=== PATIENT | male | born 1955 | race Two or more races ===

== ENCOUNTER → 2024-12-09 | Outpatient (CLI) | payer MEDICARE, MEDICAID, SELFPAY ==
[2024-12-09 10:53] LABS: Glucose Estimated Average 280 mg/dL (80-131); Hemoglobin A1C 11.4 % Hgb (4.8-6.0)
[2024-12-09 11:08] LABS: Alanine Aminotransferase 50 U/L (10-49); Albumin, Serum 4.4 gm/dL (3.4-4.8); Albumin/Globulin Ratio 1.8 (1.2-2.2); Alkaline Phosphatase 54 U/L (46-116); Anion Gap 5 (7-16); Aspartate Amino Transferase 29 U/L (0-34); BUN/Creatinine Ratio 18 Ratio (12-20); Bilirubin,Total 1.2 mg/dL (0.3-1.2); Blood Urea Nitrogen 18 mg/dL (9-23); Calcium 9.1 mg/dL (8.3-10.6); Calcium (Corrected) 9.1 mg/dL (8.5-10.1); Carbon Dioxide 29.2 mMol/L (20.0-31.0); Chloride 105 mMol/L (98-107); Globulin 2.5 gm/dL (2.3-3.5); Glucose 255 mg/dL (74-106); Osmolality,Calculated 288 (275-295); Sodium 139 mMol/L (136-145); Total Protein 6.9 gm/dL (5.7-8.2); eGFR > 60 See Note
== END | disposition home or self-care (01) ==
PROVIDERS: PCP Student in an Organized Health Care Education/Training Program; Referring Provider Internal Medicine; Visit Provider Internal Medicine
DX: Z00.00 Encounter for general adult medical examination without abnormal findings (principal); E11.69 Type 2 diabetes mellitus with other specified complication
CPT/HCPCS: 36415; 80053; 83036

== ENCOUNTER 2024-12-10 08:47 | Outpatient (AMB) | payer MEDICARE, MEDICAID, SELFPAY ==
[2024-12-10 08:53] VITALS: BP 160/77; PULSE 59; RESP 16; TEMP 36.6; O2SAT 97; BMI 28.0
--- NOTE | 2024-12-10 08:53 | ACNOTE_ITS ---
Vital Signs 12/10/24 08:53 Height 1.6 m Height Method Stated Weight 71.668 kg Weight Measurement Method Standing Scale BMI 28.0 BP 160/77 H Blood Pressure Source Automatic Cuff Blood Pressure Location Left Upper Arm Position Sitting Respiration 16 Pulse 59 L Pulse Source Monitor Temp 97.8 F Temp Source Oral Pulse Oximetry (%) 97 Oxygen Delivery Method Room Air Allergies/Meds Allergies & Medications Allergies No Known Allergies Allergy (Verified 12/10/24 08:54) Medication Reconciliation pen needle, diabetic 29 gauge x 1/2 (Comfort EZ Pen [place]) #100 ea 01/28/24 [Rx Confirmed 12/10/24] insulin glargine 100 unit/mL (3 mL) subcutaneous pen (Lantus Solostar U-100 Insulin) 30 unit (0.3 mL) subcut HS #15 mL 12/10/24 [Rx] lisinopril 2.5 mg tablet 10 mg (4 x 2.5 mg) PO QDAY Hypertension #120 tabs 12/10/24 [Rx] metformin 500 mg tablet,extended release 24 hr 1,000 mg (2 x 500 mg) PO BID #60 tabs 12/10/24 [Rx] MA Intake Visit Data Collection New Patient or Established: Established Patient (seen at [facility] within 3 years) Seen by Clinical Staff ONLY (RN/MA): No Pain Present Currently: No Pain scale:: 0 Pain Scale Used: Briones-Dutta/Numerical Service Now Developer Required: No PCP or OBGYN visit in last 3 months: Yes Hx Now: No Do You Feel Safe at Home: Yes Authorities Contacted: N/A Smoking Status Smoking Status: Never smoker Immunization / Flu Flu Vaccine in the Last 12 Months: No Flu Vaccine Exclusion Criteria: No Exclusion Criteria Past Medical History Past Medical History CARDIAC: Positive Hypertension; Negative Congestive Heart Failure RESPIRATORY: Negative Chronic Obstructive Pulmonary Disease (COPD) GENITOURINARY: Negative Renal Disease ENDOCRINE: Positive Diabetes Mellitus Type 2; Negative Diabetes Mellitus Type 1 OTHER HISTORY: Positive Hospitalization; Negative Falls, Blood Transfusions or Anesthesia Reactions Social History SMOKING STATUS: Smoking status: Never smoker ALCOHOL: Alcohol Intake: Current ALCOHOL FREQUENCY: Alcohol Intake Frequency: holidays/special occasions only HOUSING: Housing: House LIVES WITH: Lives With: Children Patient Portal Questionaires Social History Living Situation History Housing: House Housing Other:: pt lives with dtr Tobacco History Smoking Status: Never smoker Alcohol History Alcohol Intake: Current Alcohol Intake Frequency: holidays/special occasions only Domestic Abuse History Do You Feel Safe at Home: Yes Review of Systems Report any current symptoms Only answer those that you have currently: Past Medical History Past Medical History Have you ever been diagnosed with any of the following: Cardiology Problems Congestive Heart Failure: No Hypertension: Yes Respiratory Problems Chronic Obstructive Pulmonary Disease (COPD): No Genital/Urinary Problems Renal Disease: No Endocrine Problems Diabetes Mellitus Type 1: No Diabetes Mellitus Type 2: Yes Other Problems Hospitalization: Yes Falls: No Blood Transfusions: No Anesthesia Reactions: No History of Present Illness HPI Narrative Patient here for follow up visit BP 144/67 states hes not taking his BP meds as he is feeling tired. Will change medication to lisinopril 2.5mg q day and ordered follow up A1C and BMP and will see in 4 months per patients request. Additionally patient has a mole near his right side of face near eye and states it has grown recently and bleeding referred to dermatology. 12/10/2024: Patient here for follow up, BP today was 160/77, re-taken found to be 135/776, reviewed labs A1C 11.4, patient states not being complaint with medications confirmed with at the bedside. Uptitrated lisinopril to 10mg qday, metformin 1000mg BID and lantus was adjusted to 20units HS and was instructed to uptitrate 1 units every morning till fasting blood glucose reaches 150. Patient counseled on importance of medication compliance. BMP ordered for follow up visit in 3 weeks. Review of Systems Review of Systems Narrative Review of Systems: Narrative ROS GENERAL: Denies fevers/chills or diaphoresis. HEENT: Denies headache or visual/hearing changes. Denies nasal discharge. NEURO: Denies unusual weakness or difficulty speaking. CARDIO: Denies chest pain or palpitations PULM: Denies SOB, coughing, or wheezing. GI: Denies abdominal pain, N/V/C/D/reflux/gas, bright red blood per rectum or melena. Reports having BMs. URO: Denies burning/itching/pain/urinary changes. MSK/EXT/SKIN: Denies joint/skeletal/muscle pain, issues/changes in upper or lower extremities, itchiness, or superficial pain. PSYCH: Cooperative, pleasant mood & affect. The rest of the review of systems is otherwise negative. Objective/Exam Narrative Physical exam: Physical Exam GENERAL: NAD, AAOx3 HEENT: Moist mucosa. Eyes open, symmetrical, & clear CARDIO: Heart RRR, no obvious murmurs PULM: No noted coughing/dyspnea CTA B/L, no R/W/R GI: Abdomen soft, nondistended, no pain on palpation. BSx4 SKIN/MSK/EXT: No wounds/rashes/edema/amputations, no pain on palpation. Pedal pulses present B/L NEURO: AAOx3, no focal neuro deficits, able to move all 4 extremities Assessment & Plan Diagnosis / Problem List (1) HTN (hypertension): Status: Acute Qualifiers: Hypertension type: primary hypertension Qualified Code(s): I10 - Essential (primary) hypertension Plan: BP today 160/77, retaken SBP 135, uptitrated lisinopril from 2.5mg q day to 10mg qday BMP also ordered to monitor renal function and potassium in 3 weeks of next follow up (2) Type 2 diabetes mellitus: Status: Acute Qualifiers: Diabetes mellitus complication status: with other specified complication Diabetes mellitus fci insulin use: with exterminator helper termite use Qualified Code(s ): E11.69 - Type 2 diabetes mellitus with other specified complication; Z79.4 - buttermaker (current) use of insulin Plan: A1c reviewed was 11.4, patient is non-complaint, lantus adjusted to 20 units at night and instructed to uptitrate every morning by 1 unit until fasting blood glucose reaches goal of 150 Metformin also adjusted to 1000mg BID Orders: Orders Basic Metabolic Panel Today E78.2 - Mixed hyperlipidemia Additional Assessment Internal Medicine Attending Note: Case discussed with and agree with note and management plan of Resident Physician as per Resident's Note above. Issues of concern for present visit are as follows: Follow-up visit. Blood pressure remains elevated though recheck was 135/76. Tolerating lisinopril, no cough. Labs reviewed, creatinine 1.0, potassium 5.0. Would titrate lisinopril dose up to 10 mg daily. Diabetic self-care reviewed including diet, exercise, footcare, eye care, home glucose testing. Patient reports blood sugars typically running higher in the morning, around 200. Using insulin glargine 20 units nightly. Would titrate upwards by 1 unit nightly until fasting glucoses in the a.m. are around 150. We will double his metformin dose as well and see if able to tolerate. Recheck BMP in 2 to 3 weeks. Follow-up in 4 weeks. Vinny Guy MD Advanced Care Planning Advance care planning discussed with:: patient and spouse Physician Billing Established Patient Established Patient: E/M Level 3-CPT 65464 Office Procedures [facility] Level of Care Nursing/Assessment Patient Status: Established Patient Nursing Assessment/Reassessment: Medication Reconciliation, Update PMH in EMR and Vital Signs Coordination of Care: Complex Care and Chronic Disease 1-5, Consent,records obtained, informed consent, Education Simp Pt/Fam and Staff clarify orders Established Patient Charge Established Patient Point Assignment: 85 Established Patient Point Charge: EP Level 3 (80-115)
== END 2024-12-10 09:57 | disposition home or self-care (01) ==
LOC: HODAHC 08:47
PROVIDERS: PCP Student in an Organized Health Care Education/Training Program; Referring Provider Student in an Organized Health Care Education/Training Program; Supervising Provider Student in an Organized Health Care Education/Training Program; Visit Provider Student in an Organized Health Care Education/Training Program
DX: I10 Essential (primary) hypertension (principal); E11.9 Type 2 diabetes mellitus without complications; Z79.4 Long term (current) use of insulin
CPT/HCPCS: 99213; G0463

== ENCOUNTER → 2024-12-29 | Outpatient (CLI) | payer MEDICARE, MEDICAID, SELFPAY ==
[2024-12-29 11:00] LABS: Anion Gap 9 (7-16); BUN/Creatinine Ratio 16 Ratio (12-20); Blood Urea Nitrogen 18 mg/dL (9-23); Calcium 9.6 mg/dL (8.3-10.6); Carbon Dioxide 27.6 mMol/L (20.0-31.0); Chloride 102 mMol/L (98-107); Creatinine (Component) 1.1 mg/dL (0.6-1.3); Glucose 133 mg/dL (74-106); Osmolality,Calculated 281 (275-295); Potassium 4.4 mMol/L (3.4-5.1); Sodium 139 mMol/L (136-145); eGFR > 60 See Note
== END | disposition home or self-care (01) ==
PROVIDERS: PCP Student in an Organized Health Care Education/Training Program; Referring Provider Student in an Organized Health Care Education/Training Program; Visit Provider Student in an Organized Health Care Education/Training Program
DX: E78.2 Mixed hyperlipidemia (principal)
CPT/HCPCS: 36415; 80048

== ENCOUNTER 2024-12-31 09:13 | Outpatient (AMB) | payer MEDICARE, MEDICAID, SELFPAY ==
[2024-12-31 09:23] VITALS: BP 133/72; PULSE 61; RESP 16; TEMP 36.6; O2SAT 97; BMI 26.2
--- NOTE | 2024-12-31 09:23 | ACNOTE_ITS ---
Vital Signs 12/31/24 09:23 Height 1.65 m Height Method Stated Weight 71.441 kg Weight Measurement Method Standing Scale BMI 26.2 BP 133/72 H Blood Pressure Source Automatic Cuff Blood Pressure Location Left Upper Arm Position Sitting Respiration 16 Pulse 61 Pulse Source Monitor Temp 97.8 F Temp Source Temporal Artery Scan Pulse Oximetry (%) 97 Oxygen Delivery Method Room Air Allergies/Meds Allergies & Medications Allergies No Known Allergies Allergy (Verified 12/31/24 09:24) Medication Reconciliation pen needle, diabetic 29 gauge x 1/2 (Comfort EZ Pen [place]) #100 ea 01/28/24 [Rx Confirmed 12/31/24] atorvastatin 40 mg tablet 40 mg PO QHS #30 tabs 12/31/24 [Rx] insulin glargine 100 unit/mL (3 mL) subcutaneous pen (Lantus Solostar U-100 Insulin) 30 unit (0.3 mL) subcut HS #15 mL 12/31/24 [Rx] lisinopril 10 mg tablet 10 mg PO QDAY #30 tabs 12/31/24 [Rx] metformin 500 mg tablet,extended release 24 hr 1,000 mg (2 x 500 mg) PO BID #60 tabs 12/31/24 [Rx] MA Intake Visit Data Collection New Patient or Established: Established Patient (seen at [facility] within 3 years) Seen by Clinical Staff ONLY (RN/MA): No Pain Present Currently: No Pain scale:: 0 Pain Scale Used: Briones-Dutta/Numerical Emblem Cutter Required: Yes PCP or OBGYN visit in last 3 months: Yes Hx Now: No Do You Feel Safe at Home: Yes Authorities Contacted: N/A Smoking Status Smoking Status: Never smoker Immunization / Flu Flu Vaccine in the Last 12 Months: No Flu Vaccine Exclusion Criteria: No Exclusion Criteria Past Medical History Past Medical History CARDIAC: Positive Hypertension; Negative Congestive Heart Failure RESPIRATORY: Negative Chronic Obstructive Pulmonary Disease (COPD) GENITOURINARY: Negative Renal Disease ENDOCRINE: Positive Diabetes Mellitus Type 2; Negative Diabetes Mellitus Type 1 OTHER HISTORY: Positive Hospitalization; Negative Falls, Blood Transfusions or Anesthesia Reactions Social History SMOKING STATUS: Smoking status: Never smoker ALCOHOL: Alcohol Intake: Current ALCOHOL FREQUENCY: Alcohol Intake Frequency: holidays/special occasions only HOUSING: Housing: House LIVES WITH: Lives With: Children Patient Portal Questionaires Social History Living Situation History Housing: House Housing Other:: pt lives with dtr Tobacco History Smoking Status: Never smoker Alcohol History Alcohol Intake: Current Alcohol Intake Frequency: holidays/special occasions only Domestic Abuse History Do You Feel Safe at Home: Yes Review of Systems Report any current symptoms Only answer those that you have currently: Past Medical History Past Medical History Have you ever been diagnosed with any of the following: Cardiology Problems Congestive Heart Failure: No Hypertension: Yes Respiratory Problems Chronic Obstructive Pulmonary Disease (COPD): No Genital/Urinary Problems Renal Disease: No Endocrine Problems Diabetes Mellitus Type 1: No Diabetes Mellitus Type 2: Yes Other Problems Hospitalization: Yes Falls: No Blood Transfusions: No Anesthesia Reactions: No History of Present Illness HPI Narrative Patient here for follow up visit BP 144/67 states hes not taking his BP meds as he is feeling tired. Will change medication to lisinopril 2.5mg q day and ordered follow up A1C and BMP and will see in 4 months per patients request. Additionally patient has a mole near his right side of face near eye and states it has grown recently and bleeding referred to dermatology. 12/10/2024: Patient here for follow up, BP today was 160/77, re-taken found to be 135/776, reviewed labs A1C 11.4, patient states not being complaint with medications confirmed with at the bedside. Uptitrated lisinopril to 10mg qday, metformin 1000mg BID and lantus was adjusted to 20units HS and was instructed to uptitrate 1 units every morning till fasting blood glucose reaches 150. Patient counseled on importance of medication compliance. BMP ordered for follow up visit in 3 weeks. 12/31/2024: Patient here today for follow-up. States no active complaints at this time. States his sugars at home have ranged between 130s and 150s, currently taking 22 units of Lantus. BP today found 133/72. Reviewed basic metabolic panel found within normal limits. Added atorvastatin 40 mg as part of diabetes management and sent refills for all his medications and will follow-up within 3 months. Review of Systems Review of Systems Systems Reviewed: All systems reviewed, normal except as documented Objective/Exam Narrative Physical exam: Physical Exam GENERAL: NAD, AAOx3 HEENT: Moist mucosa. Eyes open, symmetrical, & clear CARDIO: Heart RRR, no obvious murmurs PULM: No noted coughing/dyspnea CTA B/L, no R/W/R GI: Abdomen soft, nondistended, no pain on palpation. BSx4 SKIN/MSK/EXT: No wounds/rashes/edema/amputations, no pain on palpation. Pedal pulses present B/L NEURO: AAOx3, no focal neuro deficits, able to move all 4 extremities Assessment & Plan Diagnosis / Problem List (1) HTN (hypertension): Status: Acute Qualifiers: Hypertension type: primary hypertension Qualified Code(s): I10 - Essential (primary) hypertension Plan: Blood pressure today 133/72, well-controlled compared to previous evaluations. Will continue current management with lisinopril 10 mg daily. (2) HLD (hyperlipidemia): Status: Acute Qualifiers: Hyperlipidemia type: mixed hyperlipidemia Qualified Code(s): E78.2 - Mixed hyperlipidemia Plan: Started on atorvastatin 40 mg nightly (3) Type 2 diabetes mellitus: Status: Acute Qualifiers: Diabetes mellitus complication status: with other specified complication Diabetes mellitus watermelon harvesting supervisor insulin use: with watermelon harvesting supervisor use Qualified Code(s): E11.69 - Type 2 diabetes mellitus with other specified complication; Z79.4 - senior living (current) use of insulin Plan Patient currently on 22 units of Lantus as well as metformin 1000 mg twice daily, blood sugars at home have ranged between 130s and 150s we will keep current regimen at this time. Instructed the patient to log fasting blood sugars and postprandial to evaluate if we need to adjust insulin regimen. Will follow-up in 3 months Advanced Care Planning Advance care planning discussed with:: patient and child Office Procedures [facility] Level of Care Nursing/Assessment Patient Status: Established Patient Nursing Assessment/Reassessment: Medication Reconciliation, Update PMH in EMR and Vital Signs Coordination of Care: Complex Care and Chronic Disease 1-5, Consent,records obtained, informed consent, Education Simp Pt/Fam, Results/Orders obtained and Staff clarify orders Established Patient Charge Established Patient Point Assignment: 90 Established Patient Point Charge: EP Level 3 (80-115)
== END 2024-12-31 10:29 | disposition home or self-care (01) ==
LOC: HODAHC 09:13
PROVIDERS: PCP Student in an Organized Health Care Education/Training Program; Referring Provider Student in an Organized Health Care Education/Training Program; Supervising Provider Student in an Organized Health Care Education/Training Program; Visit Provider Student in an Organized Health Care Education/Training Program
DX: E11.9 Type 2 diabetes mellitus without complications (principal); I10 Essential (primary) hypertension; Z79.4 Long term (current) use of insulin; E78.2 Mixed hyperlipidemia
CPT/HCPCS: 99213; G0463

== ENCOUNTER 2025-04-27 08:51 | Outpatient (AMB) | payer MEDICARE, MEDICAID, SELFPAY ==
[2025-04-27 09:01] VITALS: BP 133/75; PULSE 61; RESP 18; TEMP 36.8; O2SAT 96; BMI 26.2
--- NOTE | 2025-04-27 09:01 | PD.RESCLINIC ---
Vital Signs 04/27/25 09:01 Height 1.65 m Height Method Stated Weight 71.271 kg Weight Measurement Method Standing Scale BMI 26.2 BP 133/75 H Blood Pressure Source Automatic Cuff Blood Pressure Location Right Upper Arm Position Sitting Respiration 18 Pulse 61 Pulse Source Monitor Temp 98.2 F Temp Source Temporal Artery Scan Pulse Oximetry (%) 96 Oxygen Delivery Method Room Air Allergies/Meds Allergies & Medications Allergies No Known Allergies Allergy (Verified 04/29/25 15:50) Medication Reconciliation pen needle, diabetic 29 gauge x 1/2 (Comfort EZ Pen [place]) #100 ea 01/28/24 [Rx Confirmed 04/29/25] atorvastatin 40 mg tablet 40 mg PO QHS #30 tabs 12/31/24 [Rx Confirmed 04/29/25] insulin glargine 100 unit/mL (3 mL) subcutaneous pen (Lantus Solostar U-100 Insulin) 30 unit (0.3 mL) subcut HS #15 mL 12/31/24 [Rx Confirmed 04/29/25] lisinopril 10 mg tablet 10 mg PO QDAY #30 tabs 12/31/24 [Rx Confirmed 04/29/25] metformin 500 mg tablet,extended release 24 hr 1,000 mg (2 x 500 mg) PO BID #60 tabs 12/31/24 [Rx Confirmed 04/29/25] MA Intake Visit Data Collection New Patient or Established: Established Patient (seen at [facility] within 3 years) Seen by Clinical Staff ONLY (RN/MA): No Pain Present Currently: No Pain scale:: 0 Pain Scale Used: Briones-Dutta/Numerical Certified Medical Assistant Required: No PCP or OBGYN visit in last 3 months: Yes Hx Now: No Do You Feel Safe at Home: Yes Authorities Contacted: N/A Smoking Status Smoking Status: Never smoker Immunization / Flu Flu Vaccine in the Last 12 Months: No Flu Vaccine Exclusion Criteria: Refused by Patient Past Medical History Past Medical History CARDIAC: Positive Hypertension; Negative Congestive Heart Failure RESPIRATORY: Negative Chronic Obstructive Pulmonary Disease (COPD) GENITOURINARY: Negative Renal Disease ENDOCRINE: Positive Diabetes Mellitus Type 2; Negative Diabetes Mellitus Type 1 OTHER HISTORY: Positive Hospitalization; Negative Falls, Blood Transfusions or Anesthesia Reactions Social History SMOKING STATUS: Smoking status: Never smoker ALCOHOL: Alcohol Intake: Current ALCOHOL FREQUENCY: Alcohol Intake Frequency: holidays/special occasions only HOUSING: Housing: House LIVES WITH: Lives With: Children Patient Portal Questionaires Social History Living Situation History Housing: House Housing Other:: pt lives with dtr Tobacco History Smoking Status: Never smoker Alcohol History Alcohol Intake: Current Alcohol Intake Frequency: holidays/special occasions only Domestic Abuse History Do You Feel Safe at Home: Yes Review of Systems Report any current symptoms Only answer those that you have currently: Past Medical History Past Medical History Have you ever been diagnosed with any of the following: Cardiology Problems Congestive Heart Failure: No Hypertension: Yes Respiratory Problems Chronic Obstructive Pulmonary Disease (COPD): No Genital/Urinary Problems Renal Disease: No Endocrine Problems Diabetes Mellitus Type 1: No Diabetes Mellitus Type 2: Yes Other Problems Hospitalization: Yes Falls: No Blood Transfusions: No Anesthesia Reactions: No History of Present Illness HPI Narrative Patient is a 69 year old male with past medical history of hypertension, hyperlipidemia, and diabetes mellitus type 2 insulin dependent. 12/10/2024: Patient here for follow up, BP today was 160/77, re-taken found to be 135/776, reviewed labs A1C 11.4, patient states not being complaint with medications confirmed with at the bedside. Uptitrated lisinopril to 10mg qday, metformin 1000mg BID and lantus was adjusted to 20units HS and was instructed to uptitrate 1 units every morning till fasting blood glucose reaches 150. Patient counseled on importance of medication compliance. [facility] [place] ordered for follow up visit in 3 weeks. 12/31/2024: Patient here today for follow-up. States no active complaints at this time. States his sugars at home have ranged between 130s and 150s, currently taking 22 units of Lantus. BP today found 133/72. Reviewed basic metabolic panel found within normal limits. Added atorvastatin 40 mg as part of diabetes management and sent refills for all his medications and will follow-up within 3 months. 04/27/2025: Patient is in the office for follow up. Patient stated no A1c despite being order in previous office visit. Patient stated fasting glucose from 110-150 with only two episodes of elevated fasting glucose of 200. Patient denied hyperglycemic sysmptoms or hypoglycemic. Denied any chest pain, chest palpititons, or dizziness. Patient denied headaches or blurry vision. Patient does not take blood pressure at home, recommending patient purchase a blood pressure cuff if they can. Patient continues to take Lisinopril 10 mg without problems, no syncopal episode reported. Patient continues to take Atorvastatin but one day off one day one. Counselded patient to conitnue to take medication. Ordered A1c, Renal panel, and fasting lipid panel. Follow up within 3 months. Review of Systems Review of Systems Narrative Review of Systems: General appearance: NO weight change, NO fatigue, NO weakness, NO fever, NO chills, NO night sweats, No cough Skin: NO rash, NO itching, NO sores, NO moles HEENT: NO Trauma, NO nausea, NO vomiting, NO visual changes, NO blurry vision, NO double vision, NO tinnitus, NO vertigo, NO ear discharge, NO rhinorrhea, NO stuffiness, NO sneezing, NO allergy, NO epistaxis. NO Hoarseness, NO sore throat, NO swollen neck. Cardiac: NO Palpitations, NO dyspnea on exertion, NO orthopnea, NO paroxysmal nocturnal dyspnea, NO edema Respiratory: NO Shortness of Breath, NO Wheezing, NO Cough, NO Sputum, NO hemoptysis GI:NO appetite, NO nausea, NO vomiting, NO dysphagia, NO changes in bowel frequency, NO stool color, NO diarrhea, NO constipation, NO hemetemesis, NO hemorrhoids, NO melena, NO hematechezia, NO abdominal pain, NO jaundice Renal: NO frequency, NO hesitancy, NO urgency, NO hematuria, NO nocturia, NO incontinence MSK: NO muscle weakness, NO gout, NO arthritis, NO muscle stiffness Neuro: NO headaches, NO tremors, NO weakness, NO paralysis, NO seizures, NO loss of consciousness, NO numbness. Hem: NO anemia, NO easy bruising/bleeding, NO petechiae, NO purpura Endo: NO heat/cold intolerance, NO excessive sweating, NO polyuria, NO polydipsia, NO polyphagia, NO thyroid problems, Yes diabetes Pysch: NO mood, NO anxiety, NO depression Objective/Exam Narrative Physical exam: Vitals: BP 133/75, HR 61, RR 18 General Appearance: Alert and Orientated x3, well-nourished male who is sitting on exam room in distress. Thorax/Lungs: Symmetrical with good expansion. Chest and back non-tender. Lungs resonant to percussion. Breath sounds vesicular without crackles, wheezes, or rhonchi Cardiovascular/Peripheral Vascular: No jugular venous distention noted. S1 and S2 heart sounds regular, no murmurs or extra heart sounds auscultated. No peripheral edema noted. Abdomen: Bowel sounds are active. No tenderness to deep or light palpation. Diabetic Foot Exam: No lesions. Bunion noted on left greater toe. No crackles. No diabetic ulcers. Assessment & Plan Diagnosis / Problem List (1) Type 2 diabetes mellitus: Status: Acute Qualifiers: Diabetes mellitus complication status: with other specified complication Diabetes mellitus skilled nursing insulin use: with regional intermodal truck driver use Qualified Code(s): E11.69 - Type 2 diabetes mellitus with other specified complication; Z79.4 - buttermaker continuous churn (current) use of insulin Assessment & Plan: Previous A1c 11.4 (11/2024) and stated continues to take insulin 22 units and metformin 1000 ER BID. Patient stated fasting glucose 110-150s. Plan: -Continue Metformin 1000 mg BID -Insulin 22 units -follow up with renal panel and A1c, orderd -office follow up in 3 months (2) HTN (hypertension): Status: Acute Qualifiers: Hypertension type: primary hypertension Qualified Code(s): I10 - Essential (primary) hypertension Assessment & Plan: Continue Lisinopril 10 mg once daily Plan: -Advised to purchase blood pressure cuff -Hold Lisinopril if BP <120 (3) HLD (hyperlipidemia): Status: Acute Qualifiers: Hyperlipidemia type: mixed hyperlipidemia Qualified Code(s): E78.2 - Mixed hyperlipidemia Assessment & Plan: Patient counseled to continue Atorvastatin 40 mg HS as patient was taking medication off and on. Patient denied any side effects from atorvastatin including arthralgia and diarrhea. Plan: Atorvastatin 40 mg HS Lipid Panel 2 months Orders: Orders Ambulatory Hemoglobin A1C 2 Months E11.69 - Type 2 diabetes mellitus with other specified complication, E78.2 - Mixed hyperlipidemia, I10 - Essential (primary) hypertension, Z79.4 - buttermaker continuous churn (current) use of insulin Renal Function Panel 2 Months E11.69 - Type 2 diabetes mellitus with other specified complication, E78.2 - Mixed hyperlipidemia, I10 - Essential (primary) hypertension, Z79.4 - buttermaker continuous churn (current) use of insulin Lipid Panel 2 Months E11.69 - Type 2 diabetes mellitus with other specified complication, E78.2 - Mixed hyperlipidemia, I10 - Essential (primary) hypertension, Z79.4 - buttermaker continuous churn (current) use of insulin Advanced Care Planning Advance care planning discussed with:: patient Office Procedures [facility] Level of Care Nursing/Assessment Patient Status: Established Patient Nursing Assessment/Reassessment: Medication Reconciliation, Update PMH in EMR and Vital Signs Coordination of Care: Complex Care and Chronic Disease 1-5, Consent,records obtained, informed consent, Education Simp Pt/Fam and Staff clarify orders Established Patient Charge Established Patient Point Assignment: 85 Established Patient Point Charge: Level 3 (80-115)
== END 2025-04-27 10:20 | disposition home or self-care (01) ==
LOC: HODAHC 08:51
PROVIDERS: PCP Student in an Organized Health Care Education/Training Program; Referring Provider Student in an Organized Health Care Education/Training Program; Supervising Provider Internal Medicine
DX: E11.69 Type 2 diabetes mellitus with other specified complication (principal); Z79.84 Long term (current) use of oral hypoglycemic drugs; Z79.4 Long term (current) use of insulin; I10 Essential (primary) hypertension; E78.2 Mixed hyperlipidemia
CPT/HCPCS: 99213; G0463

== ENCOUNTER 2025-08-31 13:50 | Outpatient (AMB) | payer MEDICARE, MEDICAID, SELFPAY ==
[2025-08-31 14:06] VITALS: BP 151/76; PULSE 68; RESP 16; TEMP 36.7; O2SAT 96; BMI 26.9
--- NOTE | 2025-08-31 14:06 | PD.RESCLINIC ---
Vital Signs 08/31/25 14:06 Height 1.65 m Height Method Stated Weight 73.142 kg Weight Measurement Method Standing Scale BMI 26.9 BP 151/76 H Blood Pressure Source Automatic Cuff Blood Pressure Location Left Upper Arm Position Sitting Respiration 16 Pulse 68 Pulse Source Monitor Temp 98.1 F Temp Source Temporal Artery Scan Pulse Oximetry (%) 96 Oxygen Delivery Method Room Air Allergies/Meds Allergies & Medications Allergies No Known Allergies Allergy (Verified 08/31/25 14:07) Medication Reconciliation atorvastatin 40 mg tablet 40 mg PO QHS #30 tabs 09/03/25 [Rx] insulin glargine 100 unit/mL (3 mL) subcutaneous pen (Lantus Solostar U-100 Insulin) 30 unit (0.3 mL) subcut HS #15 mL 09/03/25 [Rx] lisinopril 10 mg tablet 10 mg PO QDAY #30 tabs 09/03/25 [Rx] metformin 500 mg tablet,extended release 24 hr 1,000 mg (2 x 500 mg) PO BID #60 tabs 09/03/25 [Rx] pen needle, diabetic 29 gauge x 1/2 (Comfort EZ Pen [place]) #100 ea 09/03/25 [Rx] MA Intake Visit Data Collection New Patient or Established: Established Patient (seen at [facility] within 3 years) Seen by Clinical Staff ONLY (RN/MA): No Reason for Visit:: Routine follow-up Pain Present Currently: No Pain scale:: 0 Pain Scale Used: Briones-Dutta/Numerical Circus Laborer Required: No PCP or OBGYN visit in last 3 months: Yes Date of Last PCP or OBGYN visit: 07/19/25 Hx Now: No Do You Feel Safe at Home: Yes Authorities Contacted: N/A Smoking Status Smoking Status: Never smoker Immunization / Flu Flu Vaccine in the Last 12 Months: No Flu Vaccine Exclusion Criteria: Already Received Past Medical History Past Medical History CARDIAC: Positive Hypertension; Negative Congestive Heart Failure RESPIRATORY: Negative Chronic Obstructive Pulmonary Disease (COPD) GENITOURINARY: Negative Renal Disease ENDOCRINE: Positive Diabetes Mellitus Type 2; Negative Diabetes Mellitus Type 1 OTHER HISTORY: Positive Hospitalization; Negative Falls, Blood Transfusions or Anesthesia Reactions Social History SMOKING STATUS: Smoking status: Never smoker ALCOHOL: Alcohol Intake: Current ALCOHOL FREQUENCY: Alcohol Intake Frequency: holidays/special occasions only HOUSING: Housing: House LIVES WITH: Lives With: Children Patient Portal Questionaires PHQ-9 PHQ-2 Over the last 2 weeks, how often have you been bothered by any of the following problems? 1. Little interest or pleasure in doing things: not at all 2. Feeling down, depressed, or hopeless: not at all Total score: 0 PHQ-9 3. Trouble falling or staying asleep, or sleeping too much: Not at all 4. Feeling tired or having little energy: Not at all 5. Poor appetite or overeating: Not at all 6. Feeling bad about yourself - or that you are a failure or have let yourself or your family down: Not at all 7. Trouble concentrating on things, such as reading the newspaper or watching television: Not at all 8. Moving or speaking so slowly that other people could have noticed? - Or the opposite - being so fidgety or restless that you have been moving around a lot more than usual: not at all 9. Thoughts that you would be better off or of hurting yourself in some way: Not at all Total score: 0 If you checked off any problems, how difficult have these problems made it for you to do your work, take care of things at home, or get along with other people?: not difficult at all Source: Developed by Drs. Devin Urbano, Merline Mckeon, Reggie Cox and colleagues, with an educational raj from [employer]. Depression screen completed yes Social History Living Situation History Housing: House Housing Other:: pt lives with dtr Tobacco History Smoking Status: Never smoker Alcohol History Alcohol Intake: Current Alcohol Intake Frequency: holidays/special occasions only Domestic Abuse History Do You Feel Safe at Home: Yes Review of Systems Report any current symptoms Only answer those that you have currently: Past Medical History Past Medical History Have you ever been diagnosed with any of the following: Cardiology Problems Congestive Heart Failure: No Hypertension: Yes Respiratory Problems Chronic Obstructive Pulmonary Disease (COPD): No Genital/Urinary Problems Renal Disease: No Endocrine Problems Diabetes Mellitus Type 1: No Diabetes Mellitus Type 2: Yes Other Problems Hospitalization: Yes Falls: No Blood Transfusions: No Anesthesia Reactions: No History of Present Illness HPI Narrative Patient is a 69-year-old male with past medical history of hypertension, hyperlipidemia, and insulin-dependent type 2 diabetes. 12/10/2024: Patient here for follow up, BP today was 160/77, re-taken found to be 135/76, reviewed labs A1C 11.4, patient states not being complaint with medications confirmed with at the bedside. Uptitrated lisinopril to 10mg qday, metformin 1000mg BID and lantus was adjusted to 20units HS and was instructed to uptitrate 1 units every morning till fasting blood glucose reaches 150. Patient counseled on importance of medication compliance. [facility] ordered for follow up visit in 3 weeks. 12/31/2024: Patient here today for follow-up. States no active complaints at this time. States his sugars at home have ranged between 130s and 150s, currently taking 22 units of Lantus. BP today found 133/72. Reviewed basic metabolic panel found within normal limits. Added atorvastatin 40 mg as part of diabetes management and sent refills for all his medications and will follow-up within 3 months. 04/27/2025: Patient is in the office for follow up. Patient stated no A1c despite being order in previous office visit. Patient stated fasting glucose from 110-150 with only two episodes of elevated fasting glucose of 200. Patient denied hyperglycemic sysmptoms or hypoglycemic. Denied any chest pain, chest palpititons, or dizziness. Patient denied headaches or blurry vision. Patient does not take blood pressure at home, recommending patient purchase a blood pressure cuff if they can. Patient continues to take Lisinopril 10 mg without problems, no syncopal episode reported. Patient continues to take Atorvastatin but one day off one day one. Counselded patient to conitnue to take medication. Ordered A1c, Renal panel, and fasting lipid panel. Follow up within 3 months. 08/31/2025: Patient is Slovak-speaking, presents with daughter who is able to interpret for routine follow-up. Patient did not get any of the labs done ordered last visit due to losing the papers. Patient additionally states that he has run out of his BP medication lisinopril for a few weeks. Patient continues to be compliant with his insulin of 30 U glargine once nightly and his metformin 1000 mg BID. He does not take a short-acting insulin. Patient reports morning BG to be in the 140-160s. Last A1c was in November 2024 was 11.4. Will re-order labs including renal panel, A1c, lipid panel, UA, and microalbumin/creatinine ratio. Patient reports he has not seen an business services clerk in some time, encouraged patient to make an appointment. Patient also is currently not seeing a paper machine back tender, also encouraged to make an appointment for diabetic foot exams and given his history of foot wounds and osteomyelitis requiring hospitalization earlier this year. Examined both feet today which appear well with intact skin and no abrasions. Left third toe site of previous osteomyelitis is well-healed without any evidence of infections. Patient reports he has had a colonoscopy in the last 5 years which was normal. Daughter reports that patient sometimes has trouble staying asleep at night, but also states that he takes frequent naps throughout the day due to boredom. Patient's level of activity has also decreased and he has not been walking as much, encouraged daily exercise including short walks which can be gradually lengthened with tolerance. Objective/Exam Narrative Physical exam: Physical Exam General: Awake and in no acute distress. Conversational and non-toxic appearing. HEENT: Normocephalic, atraumatic, mucous membranes moist. Heart: Regular rate and rhythm, normal S1 and S2, no murmurs. Lungs: Clear to auscultation with no wheezing or crackles. Abdomen: Soft, nondistended, nontender, positive bowel sounds. ?No guarding or rebound tenderness. Neurologic: Alert and oriented x3, no gross neurological deficit, and patient able to move all 4 extremities. Extremities: No edema. Skin: No rash or ecchymoses. Assessment & Plan Diagnosis / Problem List (1) HLD (hyperlipidemia): Status: Chronic Qualifiers: Hyperlipidemia type: mixed hyperlipidemia Qualified Code(s): E78.2 - Mixed hyperlipidemia Assessment & Plan: Patient counseled to continue atorvastatin 40 mg HS as patient was taking medication off and on. Patient denied any side effects from atorvastatin including arthralgia and diarrhea. Plan: - Ordered lipid panel - Refilled atorvastatin 40 mg HS (2) Type 2 diabetes mellitus: Status: Chronic Qualifiers: Diabetes mellitus complication status: with other specified complication Diabetes mellitus long-term insulin use: with terminal system operator use Qualified Code(s): E11.69 - Type 2 diabetes mellitus with other specified complication; Z79.4 - terminal system operator (current) use of insulin Assessment & Plan: Previous A1c 11.4 (11/2024) and stated continues to take insulin 30 units and metformin 1000 ER BID. Patient stated fasting glucose 140s. Plan: - Refilled metformin 1000 mg BID - Refilled insulin glargine 30 U HS - Ordered renal panel and A1c - Ordered UA and microalbumin/creatinine ratio - Follow up in 2 months - Encouraged patient to make appointments with Senior Design Engineering Specialist and Maintenance Analyst for diabetic health maintenance (3) HTN (hypertension): Status: Chronic Qualifiers: Hypertension type: primary hypertension Qualified Code(s): I10 - Essential (primary) hypertension Assessment & Plan: Continue Lisinopril 10 mg once daily Plan: - Refilled lisinopril 10 mg qday Orders: Orders Lipid Panel 08/31/25 E78.2 - Mixed hyperlipidemia Urinalysis 08/31/25 E11.69 - Type 2 diabetes mellitus with other specified complication, Z79.4 - terminal system operator (current) use of insulin Ambulatory Hemoglobin A1C 08/31/25 Z13.1 - Encounter for screening for diabetes mellitus Renal Function Panel 08/31/25 E11.69 - Type 2 diabetes mellitus with other specified complication, Z79.4 - terminal system operator (current) use of insulin Microalbumin, Ur Rnd w Creat 08/31/25 E11.69 - Type 2 diabetes mellitus with other specified complication, Z79.4 - skilled nursing (current) use of insulin Advanced Care Planning Advance care planning discussed with:: patient Office Procedures [facility] Level of Care Nursing/Assessment Patient Status: Established Patient Nursing Assessment/Reassessment: Medication Reconciliation, Update PMH in EMR and Vital Signs Coordination of Care: Complex Care/Chronic Disease 5 or more, Education Complex Pt/Fam, Consent,records obtained, informed consent, Lab and Imaging orders, Results/Orders obtained and Staff clarify orders Established Patient Charge Established Patient Point Assignment: 120 Established Patient Point Charge: EP Level 4 (120-155) TB Screening LTBI Screening: Has patient traveled, was born, or resided for at least 1 month, or frequent border crossing into a country with an elevated TB rate: No Immunosuppression, current or planned (HIV, organ transplant, treated with biologic agents, steroids, or other immunosuppression medication): No Close contact to someone with infectious TB disease during lifetime: No Homelessness or incarceration, current or past: No TB testing indicated at this time (at least 1 yes above): No
== END 2025-08-31 14:46 | disposition home or self-care (01) ==
LOC: HODAHC 13:50
PROVIDERS: PCP Student in an Organized Health Care Education/Training Program; Referring Provider Student in an Organized Health Care Education/Training Program; Supervising Provider Internal Medicine; Visit Provider Student in an Organized Health Care Education/Training Program
DX: E78.2 Mixed hyperlipidemia (principal); E11.9 Type 2 diabetes mellitus without complications; I10 Essential (primary) hypertension; Z79.4 Long term (current) use of insulin; Z79.84 Long term (current) use of oral hypoglycemic drugs
CPT/HCPCS: 99214; G0463

== ENCOUNTER → 2025-09-02 | Outpatient (CLI) | payer MEDICARE, MEDICAID, SELFPAY ==
[2025-09-02 09:26] LABS: Collection Type, Urine Clean Catch; Squamous Epithelial Cell,Urine 0 /hpf (0-5)
[2025-09-02 09:47] LABS: Bilirubin,Urine Negative (Negative); Blood,Urine Negative (Negative); Clarity,Urine Clear (Clear/Hazy); Color,Urine Colorless (Lt Yel-Yel); Glucose, Urine 4+ (Negative); Ketones,Urine Negative (Negative); Leukocyte Esterase,Urine Negative (Negative); Nitrite,Urine Negative (Negative); PH,Urine 5.5 (5.0-7.0); Protein,Urine Negative (Neg - Trace); RBC,Urine 1 /hpf (0-3); Specific Gravity,Urine 1.010 (1.001-1.035); Urobilinogen,Urine Negative mg/dL (0.0-1.0); WBC,Urine < 1 /hpf (0-5)
[2025-09-02 09:59] LABS: Glucose Estimated Average 252 mg/dL (80-131); Hemoglobin A1C 10.4 % Hgb (4.8-6.0)
[2025-09-02 10:04] LABS: Albumin, Serum 4.6 gm/dL (3.4-4.8); Anion Gap 10 (7-16); BUN/Creatinine Ratio 12 Ratio (12-20); Blood Urea Nitrogen 13 mg/dL (9-23); Calcium 9.3 mg/dL (8.3-10.6); Calcium (Corrected) 9.3 mg/dL (8.5-10.1); Carbon Dioxide 27.2 mMol/L (20.0-31.0); Cardiac Risk Estimate 5.9 RATIO (4.0-6.7); Chloride 102 mMol/L (98-107); Cholesterol 224 mg/dL (132-200); Creatinine (Component) 1.1 mg/dL (0.6-1.3); Glucose 240 mg/dL (74-106); HDL Cholesterol 38 mg/dL (40-60); LDL Cholesterol,Calculated 137 mg/dL (0-130); Osmolality,Calculated 285 (275-295); Phosphorous 2.9 mg/dL (2.4-5.1); Potassium 5.0 mMol/L (3.4-5.1); Sodium 139 mMol/L (136-145); Triglycerides 247 mg/dL (30-150); eGFR > 60 See Note
[2025-09-02 10:07] LABS: Creatinine MALB Rnd Ur 40 mg/dL (30-125); Microalbumin Creat Ratio 63 mg/gCrea (<30); Microalbumin, Random Urine 25 mg/L (0-300)
== END | disposition home or self-care (01) ==
LOC: COPL 08:48
PROVIDERS: PCP Student in an Organized Health Care Education/Training Program; Referring Provider Student in an Organized Health Care Education/Training Program; Visit Provider Student in an Organized Health Care Education/Training Program
DX: E11.69 Type 2 diabetes mellitus with other specified complication (principal); Z79.4 Long term (current) use of insulin; E78.2 Mixed hyperlipidemia; Z13.1 Encounter for screening for diabetes mellitus
CPT/HCPCS: 36415; 80061; 80069; 81001; 82043; 82570; 83036